=== PATIENT | male | born 1945 | race Caucasian/White ===

== ENCOUNTER 2017-04-04 16:32 | Emergency (ER) | payer OTHER ==
[2017-04-04 16:42] VITALS: TEMP 98.4
[2017-04-04 17:22] LABS: % IMMATURE GRANULYOCYTES 0.3 % (0.0-1.1); ABSOLUTE IMMATURE GRANULOCYTES 0.02 10^3/uL (0.00-0.10); ADD DIFF? NO; ADD MORPH? NO; ADD SCAN? NO; ATYPICAL LYMPHOCYTE FLAG 0 (0-99); FRAGMENT RBC FLAG 20 (0-99); HEMATOCRIT 42.2 % (40.0-51.0); HEMOGLOBIN 14.1 g/dL (13.7-17.5); LEFT SHIFT FLG 0 (0-99); LIPEMIA HEMOLYSIS FLAG 80 (0-99); MEAN CELL HEMOGLOBIN 28.4 pg (27.9-34.1); MEAN CELL HEMOGLOBIN CONCENTR. 33.4 g/dL (32.4-36.7); MEAN CELL VOLUME 85.1 fL (81.5-99.8); MEAN PLATELET VOLUME 8.5 fL (8.7-11.7); PLATELET CLUMPS FLAG 0 (0-99); PLATELET COUNT 338 10^3/uL (150-400); RED BLOOD CELL COUNT 4.96 10^6/uL (4.40-6.38); RED CELL DISTRIBUTION WIDTH 13.2 % (11.5-15.2)
--- NOTE | 2017-04-04 17:24 | EDPHY ---
H & P Stated Complaint: wisdom tooth removed 03/11 now with l facial abcess Time Seen by Provider: 04/04/17 16:59 HPI/ROS: CHIEF COMPLAINT: facial abscess HISTORY OF PRESENT ILLNESS: 71-year-old male presents emergency department with a prescription for a CT maxillofacial with IV contrast from Dr. Mahoney. Patient had a left upper impacted wisdom tooth removed 24 days ago, with this removal they created a hole in his sinus which they attempted to patch with bone graft. Patient reports a 2 history of a left lump in his cheek has been increasing. This was drained by Dr. Mahoney 4 days ago. Patient reports it is increasing in size. He denies fevers or chills. Patient called Dr. Trotter is office today reporting it is worse and he sent him in for CT scan. Patient denies difficulty swallowing, swelling in his airway. No chest pain or shortness of breath. REVIEW OF SYSTEMS: A comprehensive 10 point review of systems is otherwise negative aside from elements mentioned in the history of present illness. Source: Patient Exam Limitations: No limitations - Personal History Current Tetanus/Diphtheria Vaccine: Unsure - Medical/Surgical History Hx Asthma: No Hx Chronic Respiratory Disease: No Hx Diabetes: No Hx Cardiac Disease: No Hx Renal Disease: No Hx Cirrhosis: No Hx Alcoholism: No Hx HIV/AIDS: No Hx Splenectomy or Spleen Trauma: No Other PMH: choly - Social History Smoking Status: Never smoked - Physical Exam Exam: General: Alert, nontoxic. ENT: Tympanic membranes clear, external auditory canal, external ear and surrounding soft tissue including over the mastoid unremarkable. Nasopharynx is not injected, there is no rhinorrhea. Oropharynx without erythema or edema. There is no exudate. No tonsillar hypertrophy. No asymmetry. The uvula is midline. No elevation of tongue. There is no hoarseness. No drooling, patient has good control of their oral secretions. No trismus. No stridor. Cardiac: Regular rate and rhythm. Left cheek with swelling, induration. No dental abscess. Respiratory: Lungs clear to auscultation bilaterally. Neurological: no meningismus. Skin: No rashes. Constitutional: Initial Vital Signs Temperature (C) 36.9 C 04/04/17 16:39 Heart Rate 94 04/04/17 16:39 Respiratory Rate 18 04/04/17 16:39 Blood Pressure 121/75 H 04/04/17 16:39 O2 Sat (%) 92 04/04/17 16:39 O2 Delivery Mode Room Air Allergies/Adverse Reactions: Penicillins Allergy (Verified 04/04/17 16:37) Home Medications: Medication Instructions Recorded AZITHROMYCIN 04/04/17 GABAPENTIN 04/04/17 IBUPROFEN 04/04/17 Losartan Potassium 04/04/17 traZODone 04/04/17 Medical Decision Making - Diagnostics Imaging Results: Imaging Impressions Face CT 04/04/17 17:16 Impression: In the area of maximal soft tissue swelling, detail is obscured by amalgam artifact. Consider ultrasound of the left cheek if there is concern for an abscess hiding in the swollen area. Results discussed with Scooby Maldonado at 6:12 PM. Head/Neck Ultrasound 04/04/17 18:15 Impression: There is a 3.2 cm complex hypoechoic collection at the site of the facial swelling, which could represent a phlegmon or developing abscess. Clinical correlation is suggested. Findings were discussed with Ashley Maldonado NP at 19:19, on 04/04/2017. ED Course/Re-evaluation: IV established, CBC, i-STAT and CT maxillofacial with IV contrast ordered. Creatinine 1.1, CT called. CT maxillofacial shows swelling in the left cheek though difficult to tell if there is abscess due to artifact. Ultrasound has been ordered. Ultrasound shows a large fluid collection in the left cheek. Dr. Mahoney has been called. 840pm- Dr. Mahoney has drained this patients abscess. He will be discharged home and will follow up with Dr. Mahoney tomorrow in clinic. He is given strict return precautions for any new symptoms or concerns. - Data Points Laboratory Results: Laboratory Results 04/04/17 16:54 04/04/17 04/04/17 17:11 16:54 WBC 6.89 10^3/uL 10^3/uL (3.80-9.50) RBC 4.96 10^6/uL 10^6/uL (4.40-6.38) Hgb 14.1 g/dL g/dL (13.7-17.5) POC Hgb 14.3 gm/dL gm/dL (13.7-17.5) Hct 42.2 % % (40.0-51.0) POC Hct 42 % % (40-51) MCV 85.1 fL fL (81.5-99.8) MCH 28.4 pg pg (27.9-34.1) MCHC 33.4 g/dL g/dL (32.4-36.7) RDW 13.2 % % (11.5-15.2) Plt Count 338 10^3/uL 10^3/uL (150-400) MPV 8.5 fL L fL (8.7-11.7) Neut % (Auto) 66.6 % % (39.3-74.2) Lymph % (Auto) 24.1 % % (15.0-45.0) [place] % (Auto) 7.7 % % (4.5-13.0) Eos % (Auto) 1.0 % % (0.6-7.6) Baso % (Auto) 0.3 % % (0.3-1.7) Nucleat RBC Rel Count 0.0 % % (0.0-0.2) Absolute Neuts (auto) 4.59 10^3/uL 10^3/uL (1.70-6.50) Absolute Lymphs (auto) 1.66 10^3/uL 10^3/uL (1.00-3.00) Absolute Monos (auto) 0.53 10^3/uL 10^3/uL (0.30-0.80) Absolute Eos (auto) 0.07 10^3/uL 10^3/uL (0.03-0.40) Absolute Basos (auto) 0.02 10^3/uL 10^3/uL (0.02-0.10) Absolute Nucleated RBC 0.00 10^3/uL 10^3/uL (0-0.01) Immature Gran % 0.3 % % (0.0-1.1) Immature Gran # 0.02 10^3/uL 10^3/uL (0.00-0.10) POC Sodium 141 mEq/L mEq/L (134-144) POC Potassium 3.9 mEq/L mEq/L (3.3-5.0) POC Chloride 99 mEq/L mEq/L (97-110) POC BUN 25 mg/dL H mg/dL (7-23) POC Creatinine 1.1 mg/dL mg/dL (0.7-1.3) POC Glucose 107 mg/dL H mg/dL (70-100) Medications Given: Discontinued Medications Hydrocodone Bitart/Acetaminophen ([place] 5/325) 1 tab PO EDNOW ONE Stop: 04/04/17 18:56 Last Admin: 04/04/17 18:57 Dose: 1 tab Ibuprofen (Motrin) 600 mg PO EDNOW ONE Stop: 04/04/17 18:56 Last Admin: 04/04/17 18:58 Dose: 600 mg Point of Care Test Results: 04/04/17 17:11 POC Sodium 141 POC Potassium 3.9 POC Chloride 99 POC BUN 25 H POC Creatinine 1.1 POC Glucose 107 H Departure - Departure Disposition: Home, Routine, Self-Care Clinical Impression: Abscess of left internal cheek Condition: Good Instructions: Dental Abscess (ED), Incision and Drainage (ED), Hydrocodone/ Acetaminophen (By mouth) Additional Instructions: Follow-up with Dr. Mahoney as scheduled tomorrow. Return to the emergency department for any worsening symptoms, new symptoms or concerns. Referrals: Shahriar Mahoney DDS [Doctor of Dental Surgery] - As per Instructions
[2017-04-04] MEDS ORDERED: IOPAMIDOL (ISOVUE-300) 100 ML BTL ONE (17:30)
[2017-04-04] MEDS ORDERED: HYDROCODONE/APAP 5/325 TAB ONE (18:54)
[2017-04-04] MEDS ORDERED: IBUPROFEN 600 MG TAB PO ONE ×2 (18:54→18:55)
[2017-04-04] MEDS ORDERED: HYDROCODONE/APAP 5/325 TAB PO ONE (18:55)
[2017-04-04 19:01] VITALS: PULSE 78
[2017-04-04] MEDS ORDERED: HYDROCOD/APAP 5/325 PREPACK#6 BTL TAKEHOME ONE (20:39)
[2017-04-04 21:01] VITALS: BP 130/78; RESP 16; O2SAT 96
--- NOTE | 2017-04-05 10:41 | GCON ---
[f rep st] CONSULTATION DATE OF CONSULTATION: 04/04/2017 HISTORY OF PRESENT ILLNESS: The Carlyle is an established patient of my private practice clinic who was seen 2 weeks ago for extraction of carious and impacted tooth #16. Earlier this week he was seen in my clinic for a subperiosteal abscess that had developed associated with the extraction. 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 He called the office today, and stated that he had increased left-sided facial swelling, and I sent him to [facility] for a maxillofacial CT scan with contrast. However, the hospital was not able to get him in a timely fashion, and the Emergency Department admitted the patient, and was able to get the CT scan performed, which was inconclusive. Following an ultrasound, it revealed an abscess of the left face associated with extraction of tooth #16. The abscess is now just deep to the epithelium of the cheek. EXAMINATION: Facial examination revealed a left-sided facial swelling that was red and pointing on the left cheek. It was fluctuant, and when compressed there was drainage present intraorally in the mouth through the previous incision and drainage site. A CT scan showed possible left buccal abscess and facial cellulitis. Ultrasound confirmed. ASSESSMENT AND PLAN: Findings were discussed with the patient and his . All questions were answered. I have informed him that I would like to perform incision and drainage in the Emergency Department [facility]. Signed and verbal consent was obtained. I informed them that I would like to attempt this intraorally first; however, if this was not possible we would perform incision of the epithelium to drain the abscess. They were comfortable with this plan. DETAILS OF OPERATION: Five cc of 2% lidocaine with 1:100,000 epinephrine was infiltrated into the left maxillary vestibule in a posterior superior alveolar block, as well as infiltration around the abscess. A #11 blade was used to make a small stab incision in the left buccal mucosa, being mindful of the parotid duct. Blunt dissection was performed to enter the abscess cavity, and approximately 4 cc of purulent material was evacuated from the abscess cavity. Forty cc of normal saline was then used to irrigate the abscess cavity, and a 1/ 4 inch Ivan drain was placed into the site, which was sutured in place with 2-0 silk suture. [facility] and will follow up with me in the clinic tomorrow. /[id number]/MODL MTDD
== END 2017-04-04 21:01 | disposition home or self-care (01) ==
PROC: 0H91XZZ Drainage of Face Skin, External Approach (ICD-10-PCS; principal; 2017-04-04)
DX: T81.4XXA Infection following a procedure, initial encounter (principal); Y82.8 Other medical devices associated with adverse incidents
CPT/HCPCS: 10180; 70487; 76536; 99285; Q9967; 82947-QW